=== PATIENT | male | born 1960 | race Caucasian/White ===

== ENCOUNTER 2018-07-16 21:57 | Observation (INO) ==
[2018-07-17] MEDS ORDERED: Sod Chloride 0.9% Inj 1,000 ML IV.SIG ONE (00:36)
--- NOTE | 2018-07-17 00:43 | ED ---
HPI General Chief complaint: Recheck/Abnormal Lab/Rx Stated complaint: Abnormal Lab Results Time Seen by Provider: 07/17/18 00:36 Source: patient Mode of arrival: ambulatory Limitations: no limitations History of Present Illness HPI narrative: 57-year-old male presents to the emergency department at the recommendation of his specialist at [facility] for blood sugar elevation. Patient states he is a renal transplant patient. Patient received a new renal transplant 1 year ago to [facility]. Patient is done well until 2 months ago started showing evidence of rejection and more recently was placed on a course of high-dose steroid and then tapering oral steroid and subsequently has noted persistently elevated blood sugars. Lab work is being monitored every week. Patient states he is not diabetic by history. Patient states that he had a previous renal transplant for 28 years and then the kidney was no longer functional and underwent new transplant one year ago. Patient states has had issues with blood sugars since being started on Procrit. Patient's managing transplant providers encouraged the patient comes to the emergency room for blood sugar intervention and fluids and insulin. Patient has appointment with his [facility] transplant team physicians in the morning. Onset (ago): day(s) Radiation: non-radiation Severity: moderate Quality: other (asymptomatic --sent to have blood sugar checked) Pain Consistency: other (none) Relieving factors: none Exacerbating factors: medication Associated symptoms: denies other symptoms Treatments prior to arrival: none Related Data Home Medications Medication Instructions Recorded Confirmed albuterol sulfate 0.63 mg INHALATION QID PRN 07/16/18 07/16/18 albuterol sulfate 2.5 mg INHALATION TID 07/16/18 07/16/18 amlodipine 5 mg PO DAILY 07/16/18 07/16/18 calcium carbonate [Calcium 600] 600 mg PO DAILY 07/16/18 07/16/18 dapsone 100 mg PO DAILY 07/16/18 07/16/18 febuxostat [Uloric] 40 mg PO DAILY 07/16/18 07/16/18 fluticasone-vilanterol [Breo 1 inh INHALATION DAILY 07/16/18 07/16/18 Ellipta] magnesium oxide 800 mg PO BID 07/16/18 07/16/18 metoprolol tartrate 25 mg PO DAILY 07/16/18 07/16/18 mycophenolate mofetil [CellCept] 1,000 mg PO BID 07/16/18 07/16/18 omeprazole 20 mg PO DAILY 07/16/18 07/16/18 pravastatin [Pravachol] 10 mg PO DAILY 07/16/18 07/16/18 prednisone 10 mg PO DAILY 07/16/18 07/16/18 tacrolimus [Prograf] 4.5 mg PO Q12H 07/16/18 07/17/18 temazepam 15 mg PO DAILY PRN 07/16/18 07/16/18 Allergies Allergy/AdvReac Type Severity Reaction Status Date / Time sulfamethoxazole Allergy Hives Verified 07/16/18 23:20 [From Bactrim] trimethoprim [From Bactrim] Allergy Hives Verified 07/16/18 23:20 Review of Systems ROS: all other systems reviewed are negative [facility] Medical History Medical History Alport syndrome (Acute) Fistula (Acute) History of asthma (Acute) History of high blood pressure (Acute) Hx of gastroesophageal reflux (GERD) (Acute) Surgical History Surgical History History of kidney transplant (Acute) Social History Social History Substance History: No History of Abuse Smoking Status: Never smoker How Often Do You Have a Drink Containing Alcohol: Never Recent Travel in [facility] within the Last 8 Weeks: No Recent Out of Country Travel within the Last 8 Weeks: No Immunization History Tetanus Immunization: <5 Years Hx Influenza Vaccine This Season: No Exam Narrative Exam Narrative: GENERAL: Well-nourished, well-developed patient. SKIN: Focused skin assessment warm/dry. HEAD: Normocephalic. EYES: No scleral icterus. No injection or drainage. NECK: Supple, trachea midline. No JVD or lymphadenopathy. CARDIOVASCULAR: Regular rate and rhythm without murmurs, gallops, or rubs. RESPIRATORY: Breath sounds equal bilaterally. No accessory muscle use. GASTROINTESTINAL: Abdomen soft, non-tender, nondistended. MUSCULOSKELETAL: No cyanosis, or edema. BACK: Nontender without obvious deformity. No CVA tenderness. Course Consultations Consultation #1: [facility] Renal Transplant Dr Yasmine Bingham /[phone]; no appointment with team -- only phone call w/ coordinator re : adjusting meds contributing to hyperglycemia Time: 05:00 Initial Documented Vital Signs Temperature 97.4 F L 07/16/18 22:59 Pulse Rate 98 H 07/16/18 22:59 Respiratory Rate 12 07/16/18 22:59 Blood Pressure 137/84 07/16/18 22:59 Pulse Oximetry 94 L 07/16/18 22:59 Last Documented Vital Signs Temperature 97.4 F L 07/16/18 22:59 Pulse Rate 75 07/17/18 03:07 Respiratory Rate 17 07/17/18 03:07 Blood Pressure 135/68 07/17/18 03:07 Pulse Oximetry 93 L 07/17/18 03:07 Medical Decision Making MDM Narrative Medical decision making narrative: 57-year-old renal transplant patient with hyperglycemia sent to the emergency room for evaluation; patient denies any concerns or complaints presents at the recommendation of his specialist. Patient identified by bedside glucose to have elevated blood sugar. IV access obtained specimens collections of resulting patient bolus with normal saline and ordered regular insulin bolus After IV fluids and one-time dose of insulin blood sugar checked at 1 AM 583 patient given additional dose of fluids and insulin 5 units and BMP ordered Patient administered additional 5 units IV regular insulin; patient's blood sugar 400 down from 828; patient's transplant surgeon team has been informed of patient's status; their goal is to follow-up with patient as outpatient regarding adjusting current medication regimen regarding ongoing steroid therapy and dapsone which were felt to be contributing to patient's hyperglycemia however patient's marked hyperglycemia may reflect borderline diabetes/new onset type 2 diabetes. As such patient will be admitted for further blood sugar management. Patient's case discussed with medicine physician Dr. Melisa rider except to her service. Medical Screen Exam Complete: Yes Emergency Medical Condition: Yes Differential Diagnosis Differential Diagnosis: Hyperglycemia, diabetes, electrolyte disturbance, renal failure, dehydration Medical Records Medical records reviewed: Yes I reviewed the patient's medical records. Lab Data Result diagrams: 07/17/18 00:50 07/17/18 03:00 Lab Results 07/16/18 07/17/18 07/17/18 Range/Units 23:53 00:50 00:50 CBC w Diff Auto diff final WBC 3.6 L (4.0-11.0) th/mm3 RBC 4.48 L (4.50-5.90) mil/mm3 Hgb 13.0 (13.0-17.0) gm/dL Hct 40.5 (39.0-51.0) % MCV 90.5 (80.0-100.0) fL MCH 29.0 (27.0-34.0) pg MCHC 32.0 (32.0-36.0) % RDW 13.3 (11.6-17.2) % Plt Count 170 (150-450) th/mm3 MPV 8.1 (7.0-11.0) fL Neut % (Auto) 71.0 H (16.0-70.0) % Lymph % (Auto) 15.8 (9.0-44.0) % Dent % (Auto) 12.3 H (0.0-8.0) % Eos % (Auto) 0.4 (0.0-4.0) % Baso % (Auto) 0.5 (0.0-2.0) % Neut # (Auto) 2.6 (1.8-7.7) th/mm3 Lymph # (Auto) 0.6 L (1.0-4.8) th/mm3 Dent # (Auto) 0.4 (0.0-0.9) th/mm3 Eos # (Auto) 0.0 (0.0-0.4) th/mm3 Baso # (Auto) 0.0 (0.0-0.2) th/mm3 WBC Differential . Differential Comment . Sodium 127 L (136-145) meq/L Potassium 5.0 (3.5-5.1) meq/L Chloride 97 L (98-107) meq/L Carbon Dioxide 19.9 L (21.0-32.0) meq/L Anion Gap 10 (5-15) meq/L BUN 27 H (7-18) mg/dL Creatinine 1.80 H (0.60-1.30) mg/dL Estimated GFR 39 L (>89) mL/min POC Glucose Greater than 600 H* (68-110) mg/dl Random Glucose 828 H* (74-106) mg/dL Lactic Acid (0.4-2.0) mmol/L Calcium 8.9 (8.5-10.1) mg/dL Magnesium 1.8 (1.5-2.5) mg/dL Total Bilirubin 0.6 (0.2-1.0) mg/dL AST 9 L (15-37) U/L ALT 27 (12-78) U/L Alkaline Phosphatase 99 (45-117) U/L Troponin I (0.02-0.05) ng/mL Total Protein 6.4 (6.4-8.2) g/dL Albumin 3.4 (3.4-5.0) g/dL Beta-Hydroxybutyric Acd 0.18 (0.00-0.39) mmol/L Urine Color (Yellw/Straw) Urine Clarity (Clear) Urine pH (5.0-8.5) Ur Specific [place] (1.002-1.035) Urine Protein (Neg-Trace) mg/dL Urine Glucose (UA) (Negative) mg/dL Urine Ketones (Negative) mg/dL Urine Occult Blood (Negative) Urine Nitrate (Negative) Urine Bilirubin (Negative) Urine Urobilinogen (Less than 2) mg/dL Ur Leukocyte Esterase (Negative) Urine RBC (0-3) /hpf Urine WBC (0-5) /hpf Ur Squamous Epith Cells (0-5) /hpf Micro UA Comment Ur Microscopic Review Urine Culture Comments 07/17/18 07/17/18 07/17/18 Range/Units 00:50 00:50 01:54 CBC w Diff WBC (4.0-11.0) th/mm3 RBC (4.50-5.90) mil/mm3 Hgb (13.0-17.0) gm/dL Hct (39.0-51.0) % MCV (80.0-100.0) fL MCH (27.0-34.0) pg MCHC (32.0-36.0) % RDW (11.6-17.2) % Plt Count (150-450) th/mm3 MPV (7.0-11.0) fL Neut % (Auto) (16.0-70.0) % Lymph % (Auto) (9.0-44.0) % Dent % (Auto) (0.0-8.0) % Eos % (Auto) (0.0-4.0) % Baso % (Auto) (0.0-2.0) % Neut # (Auto) (1.8-7.7) th/mm3 Lymph # (Auto) (1.0-4.8) th/mm3 Dent # (Auto) (0.0-0.9) th/mm3 Eos # (Auto) (0.0-0.4) th/mm3 Baso # (Auto) (0.0-0.2) th/mm3 WBC Differential Differential Comment Sodium (136-145) meq/L Potassium (3.5-5.1) meq/L Chloride (98-107) meq/L Carbon Dioxide (21.0-32.0) meq/L Anion Gap (5-15) meq/L BUN (7-18) mg/dL Creatinine (0.60-1.30) mg/dL Estimated GFR (>89) mL/min POC Glucose 583 H* (68-110) mg/dl Random Glucose (74-106) mg/dL Lactic Acid 1.8 (0.4-2.0) mmol/L Calcium (8.5-10.1) mg/dL Magnesium (1.5-2.5) mg/dL Total Bilirubin (0.2-1.0) mg/dL AST (15-37) U/L ALT (12-78) U/L Alkaline Phosphatase (45-117) U/L Troponin I Less than 0.02 L (0.02-0.05) ng/mL Total Protein (6.4-8.2) g/dL Albumin (3.4-5.0) g/dL Beta-Hydroxybutyric Acd (0.00-0.39) mmol/L Urine Color (Yellw/Straw) Urine Clarity (Clear) Urine pH (5.0-8.5) Ur Specific [place] (1.002-1.035) Urine Protein (Neg-Trace) mg/dL Urine Glucose (UA) (Negative) mg/dL Urine Ketones (Negative) mg/dL Urine Occult Blood (Negative) Urine Nitrate (Negative) Urine Bilirubin (Negative) Urine Urobilinogen (Less than 2) mg/dL Ur Leukocyte Esterase (Negative) Urine RBC (0-3) /hpf Urine WBC (0-5) /hpf Ur Squamous Epith Cells (0-5) /hpf Micro UA Comment Ur Microscopic Review Urine Culture Comments 09/10/18 09/10/18 09/10/18 Range/Units 01:55 02:54 03:00 CBC w Diff WBC (4.0-11.0) th/mm3 RBC (4.50-5.90) mil/mm3 Hgb (13.0-17.0) gm/dL Hct (39.0-51.0) % MCV (80.0-100.0) fL MCH (27.0-34.0) pg MCHC (32.0-36.0) % RDW (11.6-17.2) % Plt Count (150-450) th/mm3 MPV (7.0-11.0) fL Neut % (Auto) (16.0-70.0) % Lymph % (Auto) (9.0-44.0) % Dent % (Auto) (0.0-8.0) % Eos % (Auto) (0.0-4.0) % Baso % (Auto) (0.0-2.0) % Neut # (Auto) (1.8-7.7) th/mm3 Lymph # (Auto) (1.0-4.8) th/mm3 Dent # (Auto) (0.0-0.9) th/mm3 Eos # (Auto) (0.0-0.4) th/mm3 Baso # (Auto) (0.0-0.2) th/mm3 WBC Differential Differential Comment Sodium 135 L (136-145) meq/L Potassium 4.5 (3.5-5.1) meq/L Chloride 104 (98-107) meq/L Carbon Dioxide 21.8 (21.0-32.0) meq/L Anion Gap 9 (5-15) meq/L BUN 23 H (7-18) mg/dL Creatinine 1.50 H (0.60-1.30) mg/dL Estimated GFR 48 L (>89) mL/min POC Glucose 515 H* (68-110) mg/dl Random Glucose 532 H* D (74-106) mg/dL Lactic Acid (0.4-2.0) mmol/L Calcium 8.0 L D (8.5-10.1) mg/dL Magnesium (1.5-2.5) mg/dL Total Bilirubin (0.2-1.0) mg/dL AST (15-37) U/L ALT (12-78) U/L Alkaline Phosphatase (45-117) U/L Troponin I (0.02-0.05) ng/mL Total Protein (6.4-8.2) g/dL Albumin (3.4-5.0) g/dL Beta-Hydroxybutyric Acd (0.00-0.39) mmol/L Urine Color Yellow (Yellw/Straw) Urine Clarity Clear (Clear) Urine pH 5.0 (5.0-8.5) Ur Specific [place] 1.010 (1.002-1.035) Urine Protein Negative (Neg-Trace) mg/dL Urine Glucose (UA) 1000 or greater H (Negative) mg/dL Urine Ketones Negative (Negative) mg/dL Urine Occult Blood Negative (Negative) Urine Nitrate Negative (Negative) Urine Bilirubin Negative (Negative) Urine Urobilinogen 0.2 (Less than 2) mg/dL Ur Leukocyte Esterase Negative (Negative) Urine RBC 0-3 (0-3) /hpf Urine WBC 0-5 (0-5) /hpf Ur Squamous Epith Cells 0-5 (0-5) /hpf Micro UA Comment Culture not ind Ur Microscopic Review Microscopic reviewed Urine Culture Comments Culture not ind 07/17/18 07/17/18 Range/Units 04:02 05:40 CBC w Diff WBC (4.0-11.0) th/mm3 RBC (4.50-5.90) mil/mm3 Hgb (13.0-17.0) gm/dL Hct (39.0-51.0) % MCV (80.0-100.0) fL MCH (27.0-34.0) pg MCHC (32.0-36.0) % RDW (11.6-17.2) % Plt Count (150-450) th/mm3 MPV (7.0-11.0) fL Neut % (Auto) (16.0-70.0) % Lymph % (Auto) (9.0-44.0) % Dent % (Auto) (0.0-8.0) % Eos % (Auto) (0.0-4.0) % Baso % (Auto) (0.0-2.0) % Neut # (Auto) (1.8-7.7) th/mm3 Lymph # (Auto) (1.0-4.8) th/mm3 Dent # (Auto) (0.0-0.9) th/mm3 Eos # (Auto) (0.0-0.4) th/mm3 Baso # (Auto) (0.0-0.2) th/mm3 WBC Differential Differential Comment Sodium (136-145) meq/L Potassium (3.5-5.1) meq/L Chloride (98-107) meq/L Carbon Dioxide (21.0-32.0) meq/L Anion Gap (5-15) meq/L BUN (7-18) mg/dL Creatinine (0.60-1.30) mg/dL Estimated GFR (>89) mL/min POC Glucose 422 H 405 H (68-110) mg/dl Random Glucose (74-106) mg/dL Lactic Acid (0.4-2.0) mmol/L Calcium (8.5-10.1) mg/dL Magnesium (1.5-2.5) mg/dL Total Bilirubin (0.2-1.0) mg/dL AST (15-37) U/L ALT (12-78) U/L Alkaline Phosphatase (45-117) U/L Troponin I (0.02-0.05) ng/mL Total Protein (6.4-8.2) g/dL Albumin (3.4-5.0) g/dL Beta-Hydroxybutyric Acd (0.00-0.39) mmol/L Urine Color (Yellw/Straw) Urine Clarity (Clear) Urine pH (5.0-8.5) Ur Specific [place] (1.002-1.035) Urine Protein (Neg-Trace) mg/dL Urine Glucose (UA) (Negative) mg/dL Urine Ketones (Negative) mg/dL Urine Occult Blood (Negative) Urine Nitrate (Negative) Urine Bilirubin (Negative) Urine Urobilinogen (Less than 2) mg/dL Ur Leukocyte Esterase (Negative) Urine RBC (0-3) /hpf Urine WBC (0-5) /hpf Ur Squamous Epith Cells (0-5) /hpf Micro UA Comment Ur Microscopic Review Urine Culture Comments Imaging Data Radiologist's impression: Chest X-Ray 07/17/18 00:36 CONCLUSION: Minimal basilar atelectasis. No effusion. Discharge Plan Discharge Disposition Patient Disposition: 30 Still Patient Discharge Condition Condition: Stable Discharge Details Diagnosis: Acute hyperglycemia, Renal transplant, status post, H/O steroid therapy Physicians Team ED Provider: Nova Lobato Primary Care Provider: Rosalie Almonte Attending Provider: Lucy Alan ED Status: Admitted Observation Patient
--- NOTE | 2018-07-17 00:52 | XR ---
EXAM DATE: 07/17/2018 12:49 AM EDT AGE/SEX: 57 years / Male INDICATIONS: Shortness of breath. CLINICAL DATA: This is the patient's initial encounter. Patient reports that signs and symptoms have been present for 1 day and indicates a pain score of 0/10. MEDICAL/SURGICAL HISTORY: None. None. COMPARISON: No prior exams available for comparison. FINDINGS: Cardiomegaly. Minimal basilar atelectasis or scarring. Tortuous aorta. No pneumothorax. CONCLUSION: Minimal basilar atelectasis. No effusion. Electronically signed by: Vinod Ribeiro MD 07/17/2018 12:51 AM EDT
[2018-07-17 01:03] LABS: Baso % (Auto) 0.5 % (0.0-2.0); Eos % (Auto) 0.4 % (0.0-4.0); Hematocrit 40.5 % (39.0-51.0); Lymph # (Auto) 0.6 th/mm3 (1.0-4.8); Lymph % (Auto) 15.8 % (9.0-44.0); Mean Corpuscular Volume 90.5 fL (80.0-100.0); Mean Platelet Volume 8.1 fL (7.0-11.0); Mono # (Auto) 0.4 th/mm3 (0.0-0.9); Mono % (Auto) 12.3 % (0.0-8.0); Neut # (Auto) 2.6 th/mm3 (1.8-7.7); Platelet Count 170 th/mm3 (150-450); Red Blood Count 4.48 mil/mm3 (4.50-5.90); Red Cell Distribution Width 13.3 % (11.6-17.2); White Blood Count 3.6 th/mm3 (4.0-11.0)
[2018-07-17 01:13] LABS: Chloride 97 meq/L (98-107); Sodium 127 meq/L (136-145)
[2018-07-17 01:16] LABS: Albumin 3.4 g/dL (3.4-5.0); Anion Gap 10 meq/L (5-15); Calcium 8.9 mg/dL (8.5-10.1); Carbon Dioxide 19.9 meq/L (21.0-32.0); Magnesium 1.8 mg/dL (1.5-2.5)
[2018-07-17 01:17] LABS: Blood Urea Nitrogen 27 mg/dL (7-18)
[2018-07-17 01:19] LABS: Alanine Aminotransferase 27 U/L (12-78); Aspartate Aminotransferase 9 U/L (15-37)
[2018-07-17 01:20] LABS: Glomerular Filtration Rate 39 mL/min (>89)
[2018-07-17 01:21] LABS: Total Protein 6.4 g/dL (6.4-8.2)
[2018-07-17 01:23] LABS: Alkaline Phosphatase 99 U/L (45-117)
[2018-07-17 01:25] LABS: Glucose,Random 828 mg/dL (74-106)
[2018-07-17 01:36] LABS: Beta Hydroxybutyric Acid 0.18 mmol/L (0.00-0.39)
[2018-07-17 02:30] LABS: Bilirubin,Urine Negative (Negative); Clarity,Urine Clear (Clear); Color,Urine Yellow (Yellw/Straw); Leukocyte Esterase,Urine Negative (Negative); Nitrite,Urine Negative (Negative); Urobilinogen,Urine 0.2 mg/dL (Less than 2)
[2018-07-17 02:44] LABS: RBC,Urine 0-3 /hpf (0-3); Squamous Epithelial Cell,Urine 0-5 /hpf (0-5); WBC,Urine 0-5 /hpf (0-5)
[2018-07-17 03:16] LABS: Potassium 4.5 meq/L (3.5-5.1)
[2018-07-17 03:28] LABS: Carbon Dioxide 21.8 meq/L (21.0-32.0)
[2018-07-17] MEDS ORDERED: Temazepam 15 MG Capsule PO PRN (06:00)
[2018-07-17] MEDS ORDERED: Bisacodyl 10 MG Supp RECTAL PRN (06:01)
[2018-07-17] MEDS ORDERED: Acetaminophen 325 MG Tablet PO PRN (06:01)
[2018-07-17] MEDS ORDERED: Dextrose 50% in Water 50 ML Vial IV.PUSH PRN (06:05)
[2018-07-17] MEDS: Insulin NovoLOG Aspart Correctional Sugar Inj SQ SCH ×4 (09:13→20:14)
[2018-07-17] MEDS: Sod Chloride 0.9% Inj 1,000 ML IV.CONT SCH ×2 (09:14→18:23)
[2018-07-17] MEDS: Tacrolimus 0.5 MG Capsule PO SCH ×2 (09:15→17:12)
[2018-07-17] MEDS: Pantoprazole Sodium 20 MG DR Tablet PO SCH (09:18)
[2018-07-17] MEDS: Metoprolol Tartrate 25 MG Tablet PO SCH (09:18)
[2018-07-17] MEDS: amLODIPine 5 MG Tablet PO SCH (09:18)
[2018-07-17] MEDS: predniSONE 10 MG Tablet PO SCH (09:18)
[2018-07-17] MEDS: Senna/Docusate Sodium 8.6/50 MG Tablet PO SCH ×2 (09:19→20:14)
--- NOTE | 2018-07-17 12:04 | P.HPIM ---
History of Present Illness Primary Care Physician: Rosalie Almonte MD Chief Complaint: High blood sugar History of Present Illness: The patient is a 57-year-old male with a past medical history of Alport syndrome status post kidney transplant 2 is presenting to the hospital on the request of his transplant team for high blood sugars. The patient says that he has had 2 renal transplants, the last was done last March. He says there are concerns about rejection. He has been on methylprednisolone and eventually a prednisone taper. He has also noticed sugar problems since being started on Prograf. He also says that dapsone was added. He says he gets his labs checked every week. His glucose was elevated on lab check so he was referred to the emergency department for further management. The renal transplant team has been notified of the patient's status. The patient endorses generalized weakness recently. He says he has some shortness of breath with exertion. This has been going on for the past few weeks. Review of Systems All other systems reviewed negative except as stated in HPI PMFSH - History History Provided By: Patient - Medical History Medical History: Medical History (Last Updated 07/17/18 @ 11:59 by Chris Vergara DO) Alport syndrome Chronic renal disease Fistula History of asthma History of high blood pressure Hx of gastroesophageal reflux (GERD) - Surgical History Surgical History: Surgical History (Last Updated 07/17/18 @ 11:59 by Chris Vergara DO) History of kidney transplant Renal transplant recipient - Family History Family History: Family History (Last Updated 07/17/18 @ 12:00 by Chris Vergara DO) Other Alport syndrome - Tobacco History Smoking Status: Never smoker - Alcohol History How Often Do You Have a Drink Containing Alcohol: Monthly or less - Substance Use History Substance History: No History of Abuse - Travel History Recent Travel in the [place] Within the Last 8 Weeks: No Recent Travel Out of the Country Within the Last 8 Weeks: No - Immunization History Tetanus Immunization: <5 Years Hx Influenza Vaccine This Season: No Medications and Allergies Active Medications: Active Medications Acetaminophen (Tylenol) 650 mg PO Q4H PRN PRN Reason: Temp > 100.4 Al Hydroxide/Mg Hydroxide (Milk Of Magnesia Liq) 30 ml PO Q12H PRN PRN Reason: Mild Constipation Amlodipine Besylate (Norvasc) 5 mg PO DAILY ARNIE Last Admin: 07/17/18 09:18 Dose: 5 mg Bisacodyl (Dulcolax Supp) 10 mg RECTAL DAILY PRN PRN Reason: SEVERE CONSITIPATION Dapsone (Dapsone) 100 mg PO DAILY [facility] Last Admin: 07/17/18 09:17 Dose: 100 mg Dextrose (D50w Vial) 50 ml IV.PUSH UNSCH PRN PRN Reason: PER HYPOGLYCEMIA PROTOCOL Fluticasone/Vilanterol (Breo Ellipta 100/25 Mcg Inh) 1 puff INH DAILY [facility] Last Admin: 07/17/18 09:15 Dose: 1 puff Glucagon (Glucagon Inj) 1 mg OTHER PRN PRN PRN Reason: for Hypoglycemia Protocol Sodium Chloride (Ns Inj) 1,000 mls @ 100 mls/hr IV.CONT .Q10H [facility] Last Admin: 07/17/18 09:14 Dose: 100 mls/hr Insulin Aspart (Novolog Insulin Correctional Sugar Inj) 0 unit SQ ACHS [facility]; Protocol Last Admin: 07/17/18 09:13 Dose: 9 unit Insulin Aspart (Novolog Inj) 3 units SQ TIDAC [facility] Insulin Detemir (Levemir Inj) 15 unit SQ DAILY [facility] Lactulose (Lactulose Liq) 30 ml PO DAILY PRN PRN Reason: SEVERE CONSITIPATION Magnesium Oxide (Mag-Ox) 800 mg PO BID [facility] Metoprolol Tartrate (Lopressor) 25 mg PO DAILY [facility] Last Admin: 07/17/18 09:18 Dose: 25 mg Mycophenolate Mofetil (Cellcept) 1,000 mg PO BID [facility] Last Admin: 07/17/18 09:09 Dose: 1,000 mg Ondansetron HCl (Zofran Inj) 4 mg IV.PUSH Q6H PRN PRN Reason: NAUSEA OR VOMITING Pantoprazole Sodium (Protonix) 20 mg PO DAILY [facility] Last Admin: 07/17/18 09:18 Dose: 20 mg Pt Own Uloric 40 Mg 0 each PO DAILY [facility] Pravastatin Sodium (Pravachol) 10 mg PO DAILY [facility] Last Admin: 07/17/18 09:20 Dose: 10 mg Prednisone (Deltasone) 10 mg PO DAILY [facility] Last Admin: 07/17/18 09:18 Dose: 10 mg Senna/Docusate Sodium (Yris-Colace) 1 tab PO BID [facility] Last Admin: 07/17/18 09:19 Dose: Not Given Sennosides (Senokot) 17.2 mg PO Q12H PRN PRN Reason: Moderate Constipation Sodium Chloride (Ns Flush) 2 ml IV.FLUSH PRN PRN PRN Reason: FLUSH AFTER USING IV ACCESS Tacrolimus (Prograf) 4 mg PO Q12H [facility] Last Admin: 07/17/18 09:15 Dose: 4 mg Tacrolimus (Prograf) 0.5 mg PO Q12H [facility] Last Admin: 07/17/18 09:15 Dose: 0.5 mg Temazepam (Restoril) 15 mg PO DAILY PRN PRN Reason: Sleep Allergies Allergy/AdvReac Type Severity Reaction Status Date / Time sulfamethoxazole Allergy Hives Verified 07/16/18 23:20 [From Bactrim] trimethoprim [From Bactrim] Allergy Hives Verified 07/16/18 23:20 Home Medications Medication Instructions Recorded Confirmed Type albuterol sulfate 0.63 mg INHALATION QID PRN 07/16/18 07/16/18 History albuterol sulfate 2.5 mg INHALATION TID 07/16/18 07/16/18 History amlodipine 5 mg PO DAILY 07/16/18 07/16/18 History calcium carbonate [Calcium 600] 600 mg PO DAILY 07/16/18 07/16/18 History dapsone 100 mg PO DAILY 07/16/18 07/16/18 History febuxostat [Uloric] 40 mg PO DAILY 07/16/18 07/16/18 History fluticasone-vilanterol [Breo 1 inh INHALATION DAILY 07/16/18 07/16/18 History Ellipta] magnesium oxide 800 mg PO BID 07/16/18 07/16/18 History metoprolol tartrate 25 mg PO DAILY 07/16/18 07/16/18 History mycophenolate mofetil [CellCept] 1,000 mg PO BID 07/16/18 07/16/18 History omeprazole 20 mg PO DAILY 07/16/18 07/16/18 History pravastatin [Pravachol] 10 mg PO DAILY 07/16/18 07/16/18 History prednisone 10 mg PO DAILY 07/16/18 07/16/18 History tacrolimus [Prograf] 4.5 mg PO Q12H 07/16/18 07/17/18 History temazepam 15 mg PO DAILY PRN 07/16/18 07/16/18 History Exam Vital signs: Vital Signs 07/16/18 22:59 07/17/18 00:36 07/17/18 03:07 Temperature 97.4 F L Pulse Rate 98 H 75 Respiratory Rate 12 17 Blood Pressure 137/84 135/68 Pulse Oximetry 94 L 94 L 93 L 07/17/18 08:00 Temperature 97.6 F Pulse Rate 73 Respiratory Rate 18 Blood Pressure 134/78 Pulse Oximetry 94 L Intake & Output 07/16/18 07/17/18 07/17/18 18:59 06:59 18:59 Intake Total 1000 / 1000 Balance 1000 / 1000 Weight 108.9 kg Intake: IV 1000 / 1000 NS Inj 1,000 ML @ Wide Open IV. 1000 / 1000 SIG BOLUS ONE Rx#:[id number] Narrative: GENERAL: Well-nourished, well-developed patient. SKIN: Focused skin assessment warm/dry. HEAD: Normocephalic. EYES: No scleral icterus. No injection or drainage. NECK: Supple, trachea midline. No JVD or lymphadenopathy. CARDIOVASCULAR: Regular rate and rhythm without murmurs, gallops, or rubs. RESPIRATORY: Breath sounds equal bilaterally. No accessory muscle use. GASTROINTESTINAL: Abdomen soft, non-tender, nondistended. MUSCULOSKELETAL: No cyanosis, or edema. BACK: Nontender without obvious deformity. No CVA tenderness. Results - Labs CBC & Chem 7: 07/17/18 00:50 07/17/18 03:00 Labs: Short CBC 07/17/18 Range/Units 00:50 WBC 3.6 L (4.0-11.0) th/mm3 Hgb 13.0 (13.0-17.0) gm/dL Hct 40.5 (39.0-51.0) % Plt Count 170 (150-450) th/mm3 BMP 07/17/18 07/17/18 00:50 03:00 Sodium 127 L 135 L Potassium 5.0 4.5 Chloride 97 L 104 Carbon Dioxide 19.9 L 21.8 BUN 27 H 23 H Creatinine 1.80 H 1.50 H Calcium 8.9 8.0 L D Cardiac Enzymes 07/17/18 Range/Units 00:50 Troponin I Less than 0.02 L (0.02-0.05) ng/mL Liver Function 07/17/18 Range/Units 00:50 Total Bilirubin 0.6 (0.2-1.0) mg/dL AST 9 L (15-37) U/L ALT 27 (12-78) U/L Alkaline Phosphatase 99 (45-117) U/L Albumin 3.4 (3.4-5.0) g/dL Urine 07/17/18 Range/Units 01:55 Urine Color Yellow (Yellw/Straw) Urine Clarity Clear (Clear) Urine pH 5.0 (5.0-8.5) Ur Specific [place] 1.010 (1.002-1.035) Urine Protein Negative (Neg-Trace) mg/dL Urine Glucose (UA) 1000 or greater H (Negative) mg/dL - Imaging Impressions Chest X-Ray 07/17/18 00:36 CONCLUSION: Minimal basilar atelectasis. No effusion. Caprini VTE Risk Assessment Caprini VTE Risk Assessment: Moderate/High Risk (score >= 2) Caprini Risk Assessment Model: Point Value = 1 Point Value = 2 Point Value = 3 Point Value = 5 Age 41-60 Minor surgery BMI > 25 kg/m2 Swollen legs Varicose veins or History of unexplained or recurrent spontaneous Oral contraceptives or hormone replacement Sepsis (< 1 month) Serious lung disease, including pneumonia (< 1 month) Abnormal pulmonary function Acute myocardial infarction Congestive heart failure (< 1 month) History of inflammatory bowel disease Medical patient at bed rest Age 61-74 Arthroscopic surgery Major open surgery (> 45 min) Laparoscopic surgery (> 45 min) Malignancy Confined to bed (> 72 hours) Immobilizing plaster cast Central venous access Age >= 75 History of VTE Family history of VTE Factor V Leiden Prothrombin 45564A Lupus anticoagulant Anticardiolipin antibodies Elevated serum homocysteine Heparin-induced thrombocytopenia Other congenital or acquired thrombophilia Stroke (< 1 month) Elective arthroplasty Hip, pelvis, or leg fracture Acute spinal cord injury (< 1 month) Prophylaxis Regimen: Total Risk Factor Score Risk Level Prophylaxis Regimen 0-1 Low Early ambulation 2 Moderate Order ONE of the following: *Sequential Compression Device (SCD) *Heparin 5000 units SQ BID 3-4 Higher Order ONE of the following medications: *Heparin 5000 units SQ TID *Enoxaparin/Lovenox 40 mg SQ daily (WT < 150 kg, CrCl > 30 mL/min) *Enoxaparin/Lovenox 30 mg SQ daily (WT < 150 kg, CrCl > 10-29 mL/min) *Enoxaparin/Lovenox 30 mg SQ BID (WT < 150 kg, CrCl > 30 mL/min) AND/OR *Sequential Compression Device (SCD) 5 or more Highest Order ONE of the following medications: *Heparin 5000 units SQ TID (Preferred with Epidurals) *Enoxaparin/Lovenox 40 mg SQ daily (WT < 150 kg, CrCl > 30 mL/min) *Enoxaparin/Lovenox 30 mg SQ daily (WT < 150 kg, CrCl > 10-29 mL/min) *Enoxaparin/Lovenox 30 mg SQ BID (WT < 150 kg, CrCl > 30 mL/min) AND *Sequential Compression Device (SCD) Assessment and Plan - Plan Hyperglycemia Secondary to renal transplant meds including steroids and Prograf. -continue insulin sliding scale. -add Levemir 15 units daily and aspart 3 units with meals. -coding educator. -check hemoglobin A1c. Renal transplant x 2 Concern for transplant failure, on multiple medications per his transplant team at [place]. -continue renal regimen. -outpt follow-up with transplant team at [place]. Acute on chronic renal failure Improved with fluids. -continue IVFs. -follow BMP and avoid nephrotoxins. Weakness/ QUINN May be s/t above. CXR unremarkable. -check TSH, B12. -PT evaluation. -nebs and oxygen as needed. PPx: SCDs
[2018-07-17] MEDS: Calcium Carbonate 500 MG Tablet PO SCH (12:07)
[2018-07-17] MEDS: ULORIC 40 MG PO SCH (12:07)
[2018-07-17] MEDS: Insulin Detemir Inj 1,000 UNIT/10 ML Vial SQ SCH (12:07)
[2018-07-17] MEDS: Magnesium Oxide 400 MG Tablet PO SCH ×2 (12:07→20:13)
[2018-07-17 12:31] LABS: Thyroid Stimulating Hormone 1.35 uIU/mL (0.358-3.740)
--- NOTE | 2018-07-17 19:56 | ECG ---
Date Performed: 07/17/2018 Time Performed: 02:21:27 PTAGE: 57 years EKG: Sinus rhythm NONSPECIFIC T-WAVE ABNORMALITY BORDERLINE ECG NO PREVIOUS TRACING DOCTOR: Jayro Charles Interpretating Date/Time 07/17/2018 19:54:05
[2018-07-18] MEDS: Sod Chloride 0.9% Inj 1,000 ML IV.CONT SCH (02:46)
[2018-07-18] MEDS: Tacrolimus 0.5 MG Capsule PO SCH ×2 (05:47→17:07)
[2018-07-18 06:49] LABS: Baso % (Auto) 0.2 % (0.0-2.0); Chloride 109 meq/L (98-107); Eos % (Auto) 1.3 % (0.0-4.0); Hematocrit 33.4 % (39.0-51.0); Hemoglobin 11.7 gm/dL (13.0-17.0); Lymph # (Auto) 0.6 th/mm3 (1.0-4.8); Lymph % (Auto) 19.2 % (9.0-44.0); Mean Platelet Volume 7.9 fL (7.0-11.0); Mono # (Auto) 0.4 th/mm3 (0.0-0.9); Mono % (Auto) 14.1 % (0.0-8.0); Neut % (Auto) 65.2 % (16.0-70.0); Platelet Count 161 th/mm3 (150-450); Potassium 3.9 meq/L (3.5-5.1); Red Cell Distribution Width 13.6 % (11.6-17.2); Sodium 141 meq/L (136-145)
[2018-07-18 06:53] LABS: Mean Corpuscular Volume 85.7 fL (80.0-100.0)
[2018-07-18 07:01] LABS: Albumin 2.9 g/dL (3.4-5.0); Anion Gap 10 meq/L (5-15); Calcium 8.4 mg/dL (8.5-10.1); Carbon Dioxide 21.9 meq/L (21.0-32.0)
[2018-07-18 07:12] LABS: Alanine Aminotransferase 22 U/L (12-78); Alkaline Phosphatase 68 U/L (45-117); Aspartate Aminotransferase 11 U/L (15-37); Blood Urea Nitrogen 13 mg/dL (7-18); Glomerular Filtration Rate 69 mL/min (>89); Glucose,Random 211 mg/dL (74-106); Total Protein 5.4 g/dL (6.4-8.2)
[2018-07-18] MEDS: Insulin Detemir Inj 1,000 UNIT/10 ML Vial SQ SCH (08:58)
[2018-07-18] MEDS: Insulin NovoLOG Aspart Correctional Sugar Inj SQ SCH ×4 (08:59→20:59)
[2018-07-18] MEDS: amLODIPine 5 MG Tablet PO SCH (09:00)
[2018-07-18] MEDS: Metoprolol Tartrate 25 MG Tablet PO SCH (09:00)
[2018-07-18] MEDS: predniSONE 10 MG Tablet PO SCH (09:01)
[2018-07-18] MEDS: Pantoprazole Sodium 20 MG DR Tablet PO SCH (09:01)
[2018-07-18] MEDS: Senna/Docusate Sodium 8.6/50 MG Tablet PO SCH ×2 (11:08→20:50)
[2018-07-18] MEDS: ULORIC 40 MG PO SCH (11:09)
--- NOTE | 2018-07-18 11:32 | P.PNIM ---
Subjective Interval history: The patient was resting comfortably in bed. He said he spoke with the software educator. He had questions about his prescriptions. He wanted to know who he would follow-up with upon discharge. Physical Exam Vital signs: Vital Signs 07/17/18 12:00 07/17/18 15:36 07/17/18 15:45 Temperature 98.5 F 97.5 F L Pulse Rate 77 76 79 Respiratory Rate 18 18 Blood Pressure 125/60 139/77 Pulse Oximetry 94 L 95 07/17/18 20:00 07/18/18 00:00 07/18/18 04:00 Temperature 98 F 98.6 F 96.6 F L Pulse Rate 80 81 78 Respiratory Rate 20 20 18 Blood Pressure 118/68 134/72 132/75 Pulse Oximetry 93 L 93 L 93 L 07/18/18 07:49 07/18/18 11:21 Temperature 96.5 F L 96.8 F L Pulse Rate 99 H 96 H Respiratory Rate 20 20 Blood Pressure 141/84 H 138/80 Pulse Oximetry 93 L 93 L Intake & Output 07/17/18 07/18/18 07/18/18 18:59 06:59 18:59 Intake Total 2190 / 2190 1060 / 1060 Balance 2190 / 2190 1060 / 1060 Weight 102.3 kg Intake: IV 1000 / 1000 1000 / 1000 NS Inj 1,000 ML @ 100 mls/hr IV 1000 / 1000 1000 / 1000 .CONT .Q10H ARNIE Rx#:[id number] Oral 1190 / 1190 60 / 60 Other: # Voids 4 2 # Bowel Movements 2 Narrative: GENERAL: Well-nourished, well-developed patient. SKIN: Focused skin assessment warm/dry. HEAD: Normocephalic. EYES: No scleral icterus. No injection or drainage. NECK: Supple, trachea midline. No JVD or lymphadenopathy. CARDIOVASCULAR: Regular rate and rhythm without murmurs, gallops, or rubs. RESPIRATORY: Breath sounds equal bilaterally. No accessory muscle use. GASTROINTESTINAL: Abdomen soft, non-tender, nondistended. MUSCULOSKELETAL: No cyanosis, or edema. BACK: Nontender without obvious deformity. No CVA tenderness. Results - Labs CBC & Chem 7: 07/18/18 05:53 07/18/18 05:53 Laboratory Results - last 24 hr 09/08/2407/17/18 07/17/18 03:00 11:31 16:40 CBC w Diff WBC RBC Hgb Hct MCV MCH MCHC RDW Plt Count MPV Neut % (Auto) Lymph % (Auto) [place] % (Auto) Eos % (Auto) Baso % (Auto) Neut # (Auto) Lymph # (Auto) [place] # (Auto) Eos # (Auto) Baso # (Auto) WBC Differential Differential Comment Sodium Potassium Chloride Carbon Dioxide Anion Gap BUN Creatinine Estimated GFR POC Glucose 480 H* 361 H Random Glucose Calcium Total Bilirubin AST ALT Alkaline Phosphatase Total Protein Albumin Vitamin B12 829 TSH 1.350 07/17/18 07/18/18 07/18/18 20:02 05:53 05:53 CBC w Diff Auto diff final WBC 3.0 L RBC 3.90 L Hgb 11.7 L Hct 33.4 L MCV 85.7 D MCH 30.0 MCHC 35.0 RDW 13.6 Plt Count 161 MPV 7.9 Neut % (Auto) 65.2 Lymph % (Auto) 19.2 [place] % (Auto) 14.1 H Eos % (Auto) 1.3 Baso % (Auto) 0.2 Neut # (Auto) 2.0 Lymph # (Auto) 0.6 L [place] # (Auto) 0.4 Eos # (Auto) 0.0 Baso # (Auto) 0.0 WBC Differential . Differential Comment . Sodium 141 Potassium 3.9 Chloride 109 H Carbon Dioxide 21.9 Anion Gap 10 BUN 13 Creatinine 1.10 Estimated GFR 69 L POC Glucose 315 H Random Glucose 211 H D Calcium 8.4 L Total Bilirubin 0.6 AST 11 L ALT 22 Alkaline Phosphatase 68 Total Protein 5.4 L D Albumin 2.9 L Vitamin B12 TSH 07/18/18 07:41 CBC w Diff WBC RBC Hgb Hct MCV MCH MCHC RDW Plt Count MPV Neut % (Auto) Lymph % (Auto) [place] % (Auto) Eos % (Auto) Baso % (Auto) Neut # (Auto) Lymph # (Auto) [place] # (Auto) Eos # (Auto) Baso # (Auto) WBC Differential Differential Comment Sodium Potassium Chloride Carbon Dioxide Anion Gap BUN Creatinine Estimated GFR POC Glucose 236 H Random Glucose Calcium Total Bilirubin AST ALT Alkaline Phosphatase Total Protein Albumin Vitamin B12 TSH Assessment and Plan - Plan Hyperglycemia Secondary to renal transplant meds including steroids and Prograf. -continue insulin sliding scale. -add Levemir 15 units daily, 5 units HS and aspart 3 units with meals. -software educator, nutrition consults. -check hemoglobin A1c. Renal transplant x 2 Concern for transplant failure, on multiple medications per his transplant team at [place]. -continue renal regimen. -outpt follow-up with transplant team at [place]. Acute on chronic renal failure Improved with fluids. -follow BMP and avoid nephrotoxins. Weakness/ QUINN May be s/t above. CXR unremarkable. -check TSH, B12. -PT evaluation. -nebs and oxygen as needed. PPx: SCDs
[2018-07-18] MEDS: Calcium Carbonate 500 MG Tablet PO SCH (11:52)
[2018-07-18] MEDS: Magnesium Oxide 400 MG Tablet PO SCH ×2 (11:52→20:49)
[2018-07-18 20:34] VITALS: RESP 18
[2018-07-18] MEDS ORDERED: Insulin Detemir Inj 1,000 UNIT/10 ML Vial SQ SCH ×2 (21:00)
[2018-07-18 22:04] LABS: Hemoglobin A1c 10.8 % (4.3-6.0)
[2018-07-19] MEDS: Tacrolimus 0.5 MG Capsule PO SCH (06:00)
[2018-07-19] MEDS: Insulin Detemir Inj 1,000 UNIT/10 ML Vial SQ SCH (08:40)
[2018-07-19] MEDS: Insulin NovoLOG Aspart Correctional Sugar Inj SQ SCH ×2 (08:40→12:27)
[2018-07-19] MEDS: Pantoprazole Sodium 20 MG DR Tablet PO SCH (08:57)
[2018-07-19] MEDS: Magnesium Oxide 400 MG Tablet PO SCH (08:57)
[2018-07-19] MEDS: amLODIPine 5 MG Tablet PO SCH (08:58)
[2018-07-19] MEDS: Calcium Carbonate 500 MG Tablet PO SCH (08:58)
[2018-07-19] MEDS: predniSONE 10 MG Tablet PO SCH (08:58)
[2018-07-19] MEDS: Senna/Docusate Sodium 8.6/50 MG Tablet PO SCH (08:58)
[2018-07-19] MEDS: Metoprolol Tartrate 25 MG Tablet PO SCH (08:58)
[2018-07-19] MEDS: ULORIC 40 MG PO SCH (09:00)
[2018-07-19 09:37] VITALS: BP 144/70; PULSE 98; TEMP 98.5; O2SAT 92
--- NOTE | 2018-07-19 10:42 | P.DS ---
Date of admission: 07/17/18 06:02 Primary care physician: Rosalie Almonte MD Anticipated date of discharge: 07/19/18 Brief History from admission: The patient is a 57-year-old male with a past medical history of Alport syndrome status post kidney transplant 2 is presenting to the hospital on the request of his transplant team for high blood sugars. The patient says that he has had 2 renal transplants, the last was done last March. He says there are concerns about rejection. He has been on methylprednisolone and eventually a prednisone taper. He has also noticed sugar problems since being started on Prograf. He also says that dapsone was added. He says he gets his labs checked every week. His glucose was elevated on lab check so he was referred to the emergency department for further management. The renal transplant team has been notified of the patient's status. The patient endorses generalized weakness recently. He says he has some shortness of breath with exertion. This has been going on for the past few weeks. Patient update on day of discharge: The pt was feeling well. He was looking forward to going home. He had questions about his insulin which were answered. DS: Diagnosis - Discharge Diagnosis (1) Acute hyperglycemia Status: Acute (2) Renal transplant, status post Status: Acute (3) H/O steroid therapy Status: Acute DS: Medications - Discharge Medications Prescriptions: insulin aspart U-100 [Novolog U-100 Insulin aspart] 1 sliding scale dose SUB-Q UD #10 ml insulin NPH isoph U-100 human [Novolin N NPH U-100 Insulin] 15 unit SUB-Q BID 30 Days #10 ml DS: Summary Hospital Course: Hyperglycemia Secondary to renal transplant meds including steroids and Prograf. A1c was 10.8% . We started an insulin sliding scale and added Levemir as well as aspart with meals. We consulted the clinical educator and media relations director. The pt will be discharged on NPH 15 units BID as well as a sliding scale. He will be given a script for a glucometer, lancets and syringes. He will follow up with his PCP. Renal transplant x 2 Concern for transplant failure, on multiple medications per his transplant team at [place]. We continued his renal regimen. He will have outpt follow-up with his transplant team at [place]. Acute on chronic renal failure Improved with fluids. We avoided nephrotoxins. Weakness/ QUINN May be s/t above. CXR unremarkable. TSH and B12 levels within normal limits. He worked with PT. He received nebs and oxygen as needed. He will continue his home inhaler regimen for asthma. - Time Spent with Patient Total time spent providing and/or coordinating discharge services: Greater than 30 minutes - Quality: VTE Deep Vein Thrombosis/Pulmonary Embolism Present on Admission: No Exam Vital signs: Vital Signs 07/18/18 11:21 07/18/18 15:33 07/18/18 20:00 Temperature 96.8 F L 96.3 F L 97.4 F L Pulse Rate 96 H 81 79 Respiratory Rate 20 20 18 Blood Pressure 138/80 130/70 138/73 Pulse Oximetry 93 L 93 L 94 L 07/19/18 00:00 07/19/18 08:00 Temperature 96.7 F L 98.5 F Pulse Rate 90 98 H Respiratory Rate 18 18 Blood Pressure 141/83 H 144/70 H Pulse Oximetry 91 L 92 L Intake & Output 07/18/18 07/19/18 07/19/18 18:59 06:59 18:59 Intake Total 2580 / 2580 Balance 2580 / 2580 Weight 102.3 kg Intake: IV 1000 / 1000 NS Inj 1,000 ML @ 100 mls/hr IV 1000 / 1000 .CONT .Q10H ARNIE Rx#:[id number] Oral 1580 / 1580 Other: # Voids 1 3 Date of Last Bowel Movement 07/18/18 # Bowel Movements 1 Weight On Admission 102.3 kg Narrative: GENERAL: Well-nourished, well-developed patient. SKIN: Focused skin assessment warm/dry. HEAD: Normocephalic. EYES: No scleral icterus. No injection or drainage. NECK: Supple, trachea midline. No JVD or lymphadenopathy. CARDIOVASCULAR: Regular rate and rhythm without murmurs, gallops, or rubs. RESPIRATORY: Breath sounds equal bilaterally. No accessory muscle use. GASTROINTESTINAL: Abdomen soft, non-tender, nondistended. MUSCULOSKELETAL: No cyanosis, or edema. BACK: Nontender without obvious deformity. No CVA tenderness. Results Procedures completed during hospitalization: None Labs on day of discharge: Labs from last 24 hours 07/19/18 07/18/18 07/18/18 08:05 20:52 16:49 POC Glucose 187 H 241 H 354 H Hemoglobin A1c 07/18/18 07/17/18 11:55 00:50 POC Glucose 251 H Hemoglobin A1c 10.8 H - Impressions ITS Impressions Chest X-Ray 07/17/18 00:36 CONCLUSION: Minimal basilar atelectasis. No effusion. Discharge Plan - Discharge Disposition Patient Disposition: W/Home Health Service - Discharge Condition Condition: Stable - Discharge Order Discharge Orders: Discharge Order (Routine); Ordered 07/19/18 Ordered By: Chris Vergara - Discharge Details Anticipated Discharge Date: 07/19/18 - Physicians Team Primary Care Provider: Rosalie Almonte Attending Provider: Chris Vergara
== END 2018-07-19 13:25 | disposition home health service (06) ==
LOC: PHEDA 21:57 → PHED 21:57 → PH3 07-17 06:50
PROVIDERS: ADMIT Hospitalist; ATTEND Hospitalist